=== PATIENT | female | born 1980 | race Caucasian/White ===

== ENCOUNTER 2020-08-12 22:10 | Inpatient (IN) | payer OTHER ==
[~2020-08-12] VITALS: Ht 165.1 cm; Wt 90.3 kg
[~2020-08-12 22:10] MED LIST: CLEOCIN HCL300 MG PO; COL250 PO; FLAGYL500 MG PO; IBU600 M1 PO; LAC PO; NORCO1 TA2 PO
[2020-08-12 22:20] VITALS: Ht 165.1 cm; Wt 90.3 kg
[2020-08-12 23:42] LABS: BASOPHIL % 1.6 % (0-2); PLATELET COUNT 111 x10^3mcL (130-400); RED CELL DISTRIBUTION WIDTH 14.4 % (11.5-14.5)
[2020-08-12 23:47] LABS: CALCIUM 9.2 mg/dL (8.5-10.1); CHLORIDE SERUM 103 mmol/L (98-107); CREATININE SERUM 0.8 mg/dL (0.6-1.0); GFR1 > 60 mL/min; GLUCOSE SERUM 87 mg/dL (74-106); POTASSIUM SERUM 3.5 mmol/L (3.5-5.1); SODIUM SERUM 135 mmol/L (136-145)
[2020-08-12 23:51] LABS: ALBUMIN 3.3 g/dL (3.4-5.0); ALKALINE PHOSPHATASE 139 U/L (46-116); ALT/SGPT 51 U/L (14-59); AST/SGOT 34 U/L (15-37); BILIRUBIN TOTAL 0.5 mg/dL (0.20-1.00); LIPASE 194 IU/L (73-393); TOTAL PROTEIN, SERUM 7.7 g/dL (6.4-8.2)
[2020-08-13 04:40] VITALS: BP 136/87
[2020-08-13 06:08] VITALS: BP 152/102
[2020-08-13 08:30] VITALS: BP 120/71
[2020-08-13 11:49] VITALS: BP 103/56
[2020-08-13 18:02] VITALS: BP 100/58
[2020-08-13 21:04] VITALS: BP 93/56
[2020-08-14 06:01] VITALS: BP 106/70
[2020-08-14 07:33] LABS: BASOPHIL % 0.1 % (0-2); PLATELET COUNT 215 x10^3mcL (130-400)
[2020-08-14 07:49] VITALS: BP 134/90
[2020-08-14 07:54] LABS: ALKALINE PHOSPHATASE 117 U/L (46-116); ALT/SGPT 47 U/L (14-59); AST/SGOT 37 U/L (15-37); BILIRUBIN TOTAL 0.55 mg/dL (0.20-1.00); CARBON DIOXIDE 23.9 mmol/L (21-32); CHLORIDE SERUM 108 mmol/L (98-107); CREATININE SERUM 0.7 mg/dL (0.6-1.0); GFR1 > 60 mL/min; GLUCOSE SERUM 96 mg/dL (74-106); POTASSIUM SERUM 3.7 mmol/L (3.5-5.1); SODIUM SERUM 140 mmol/L (136-145); TOTAL PROTEIN, SERUM 6.8 g/dL (6.4-8.2)
[2020-08-14 07:56] LABS: ALBUMIN 2.6 g/dL (3.4-5.0)
[2020-08-14 10:26] LABS: RED CELL DISTRIBUTION WIDTH 14.8 % (11.5-14.5)
[2020-08-14 11:30] VITALS: BP 115/68
== END 2020-08-14 14:25 | disposition home or self-care (01) | DRG 234 ==
LOC: ED 22:10 → MU 08-13 00:56
PROVIDERS: Emergency Medicine; Surgery; ADMIT Hospitalist; ATTEND Hospitalist
PROC: 0DTJ4ZZ Resection of Appendix, Percutaneous Endoscopic Approach (ICD-10-PCS; principal; 2020-08-13 10:00)
DX: K35.80 Unspecified acute appendicitis (principal); E66.9 Obesity, unspecified; Z20.828 Contact with and (suspected) exposure to other viral communicable diseases
CPT/HCPCS: G0378; J0131; J0295; J1170; J1885; J2001; J2250; J2270; J2405; J2543; J3010; J3490; J7030